=== PATIENT | male | born 1970 | race Hispanic/Latino ===

== ENCOUNTER 2017-03-30 17:29 | Emergency (ER) | payer OTHER ==
[~2017-03-30] VITALS: Ht 175.3 cm; Wt 122.5 kg
[~2017-03-30 17:29] MED LIST: CITALOPRAM HBR20 MG PO; DIVALPROEX SOD500 M1 PO; FUROSEMIDE40 MG PO; HYDRALAZINE HCL25 MG PO; LEVOTHYROXINE50 MCG PO; LOVASTATIN40 MG PEG; METOPROLOL TART25 MG PO; PHENYTOIN SODI100 MG PEG; POTASSIUM CHLO20 ME1 PO
--- OUTSIDE RECORDS SUMMARY | 2017-03-30 17:31 | XMS REPORT ---
[facility] Address Unknown Phone Unavailable Care Team Providers Care Corrosion Control Specialist Name Role Phone YASMEEN PUENTE Unavailable Unavailable Problems This patient has no known problems. Allergies, Adverse Reactions, Alerts This patient has no known allergies or adverse reactions. Medications This patient has no known medications. Results Test Description Test Time Test Comments Text Results Atomic Results Result Comments CHEST SINGLE (PORTABLE) [place] [address] Patient Name: BARB SAMANIEGO MR #: [id number] : 1970 Age/Sex: 46/M Req #: [id number] Adm Physician: Ordered by: YASMEEN PUENTE MD Report #: [id number] Location: ER Room/Bed: Procedure: [id number] DX/CHEST SINGLE (PORTABLE) Exam Date: 11/15/16 Exam Time: 2200 REPORT STATUS: Signed EXAMINATION: CHEST SINGLE (PORTABLE) INDICATION: Lower extremity edema COMPARISON: None FINDINGS: TUBES and LINES: None. LUNGS: Lungs are not well inflated. There are bibasilar atelectasis. There is mild prominence of the central pulmonary vasculature, consistent with pulmonary venous congestion. PLEURA: No pleural effusion or pneumothorax. HEART AND MEDIASTINUM: Limited evaluation due to poor inspiratory effort. However, mild enlargement is suspected. BONES AND SOFT TISSUES: No acute osseous lesion. Soft tissues are unremarkable. UPPER ABDOMEN: No free air under the diaphragm. IMPRESSION: No acute thoracic abnormality. Limited evaluation of the chest due to poor inspiratory effort Signed by: Dr. Brian Ramirez M.D. on 11/15/2016 10:38 PM Dictated By: BRIAN VILLATORO MD 37 Transcribed By: RHETT on 11/15/162237 COPY TO: YASMEEN PUENTE MD
[2017-03-30] MEDS ORDERED: METOPROLOL TART25 MG PO (18:13)
[2017-03-30] MEDS ORDERED: LACTULOSE20 GM/30 M PO (18:13)
[2017-03-30] MEDS ORDERED: LEVOTHYROXINE50 MCG PO (18:13)
[2017-03-30] MEDS ORDERED: LOVASTATIN10 MG (18:13)
[2017-03-30] MEDS ORDERED: DOXAZOSIN MESYLA2 MG PO (18:13)
[2017-03-30] MEDS ORDERED: DILANTIN30 MG (18:13)
[2017-03-30] MEDS ORDERED: CITALOPRAM HBR20 MG PO (18:13)
[2017-03-30] MEDS ORDERED: DIVALPROEX SOD125 MG (18:13)
[2017-03-30] MEDS ORDERED: HYDRALAZINE HCL10 MG PO (18:13)
[2017-03-30] MEDS ORDERED: LASIX20 MG PO (18:13)
[2017-03-30] MEDS ORDERED: POTASSIUM CHLO10 ME1 PO (18:13)
== END 2017-03-30 18:12 | disposition home or self-care (01) ==
LOC: FSED 17:29
DX: R41.82 Altered mental status, unspecified (principal); R41.0 Disorientation, unspecified; I63.9 Cerebral infarction, unspecified
CPT/HCPCS: 99282

== ENCOUNTER 2017-04-04 12:54 | Emergency (ER) | payer OTHER ==
[~2017-04-04] VITALS: Ht 175.3 cm; Wt 122.5 kg
[~2017-04-04 12:54] MED LIST changes: +DILANTIN30 MG; +DIVALPROEX SOD125 MG; +DOXAZOSIN MESYLA2 MG PO; +HYDRALAZINE HCL10 MG PO; +LACTULOSE20 GM/30 M PO; +LASIX20 MG PO; +LOVASTATIN10 MG; +POTASSIUM CHLO10 ME1 PO
--- OUTSIDE RECORDS SUMMARY | 2017-04-04 12:56 | XMS REPORT | Continuity of Care Document ---
Author Author [facility] Organization [facility] Address [address] [place] [address] Phone Unavailable Care Team Providers Care Document Review Specialist Name Role Phone JOSE WINTER MD PCP Insurance Providers Guarantor Boby Clark Address [address] [place] [address] Email [email or web address] [email or web address] [employer] Policy Number [id number] Subscriber's Name Boby Clark Relationship 18 Self / Same As Patient Effective Date 14 Advance Directives Directive Response Recorded Date/Time Does the patient have an advance directive? No 06/12/11 9:36pm If yes, is advance directive on file with [facility]? No 06/12/11 9:36pm If not on file with [facility] will patient provide a copy? No 06/12/11 9:36pm Do you have a Directive to Physician? No 03/30/17 5:53pm Do you have a Medical Power of Personnel Recruiter? No 03/30/17 5:53pm Do you have an out of hospital Do Not Resuscitate Order? No 03/30/17 5:53pm Do you have any special needs we should be aware of? No 03/30/17 5:53pm Do you have a support person here with you today? Yes 03/30/17 5:53pm Did patient receive Notice of Privacy Practices? Yes 03/30/17 5:53pm Did patient receive patient rights and responsibilities? Yes 03/30/17 5:53pm Problems No problem information available. Medications Current Home Medications Medication Dose Units Route Directions Days Qty Instructions Start Date Citalopram Hydrobromide (Citalopram Hbr) 20 Mg Tablet 20 Mg Oral Twice A Day Citalopram Hydrobromide (Citalopram Hbr) 20 Mg Tablet 20 Mg Oral Daily Divalproex Sodium 125 Mg Cap.sprink Divalproex Sodium (Divalproex Sodium Er) 500 Mg Tab.er.24h 2 Tab Oral Twice A Day Doxazosin Mesylate 2 Mg Tablet 2 Mg Oral Daily 30 Tab Furosemide (Lasix) 20 Mg Tablet 20 Mg Oral Daily 30 Tab Furosemide 40 Mg Tablet 80 Mg Oral Daily 30 Tab Hydralazine Hcl 10 Mg Tablet 10 Mg Oral Daily 30 Tab Hydralazine Hcl 25 Mg Tab 25 Mg Oral Three Times A Day Lactulose 20 Gm/30 Ml Solution 30 Ml Oral Levothyroxine Sodium 50 Mcg Tablet 25 Mcg Oral Daily 30 Tab Levothyroxine Sodium 50 Mcg Tablet 50 Mcg Oral Daily 30 Tab Lovastatin 10 Mg Tablet Lovastatin 40 Mg Tablet 1 Tab Peg Tube Daily THERAPEUTICALLY SUBSTITUTED WITH SIMVASTATIN 20MG Metoprolol Tartrate 25 Mg Tablet 25 Mg Oral Twice A Day Metoprolol Tartrate 25 Mg Tablet 25 Mg Oral Phenytoin Sodium Extended (Dilantin) 30 Mg Capsule Phenytoin Sodium Extended 100 Mg Capsule 3 Tab Peg Tube Three Times A Day Potassium Chloride 10 Meq Tab.er.prt 10 Meq Oral Potassium Chloride 20 Meq Tab.er.prt 1 Tab Oral Daily Social History Smoking Status Start Date Stop Date Never Smoker Hospital Discharge Instructions No hospital discharge instruction information available. Plan of Care Discharge Date 03/30/17 6:12pm Disposition HOME, SELF-CARE Condition at Discharge Stable Forms Provided Work/School Excuse Prescriptions See Medication Section Referrals JOSE WINTER MD Address: [address] [place] [address] Additional Instructions/Education Discussed decrease in appetite and treatment options. Recommend trial of medical therapy with FOLLOW UP MD next week. ED warnings given. Functional Status No functional status information available. Allergies, Adverse Reactions, Alerts No known allergies. Immunizations No immunization information available. Vital Signs Acute Vital Signs Vital Response Date/Time Height 5 ft 9 in 03/30/2017 5:30pm Weight 270 lb 03/30/2017 5:30pm Body Mass Index 39.9 kg/m^2 03/30/2017 5:30pm Results Laboratory Results Test Name Result Units Flags Reference Collection Date/Time Result Date/ Time Comments White Blood Count 5.99 x10e3/uL 4.8-10.8 11/15/2016 5:38pm 11/15/2016 6 :33pm Red Blood Count 5.11 x10e6/uL 4.3-5.7 11/15/2016 5:38pm 11/15/2016 6: 33pm Hemoglobin 15.9 g/dL 14.0-18.0 11/15/2016 5:38pm 11/15/2016 6:33pm Hematocrit 46.5 % 38.2-49.6 11/15/2016 5:38pm 11/15/2016 6:33pm Mean Corpuscular Volume 91.0 fL 81-99 11/15/2016 5:38pm 11/15/2016 6: 33pm Mean Corpuscular Hemoglobin 31.1 pg 28-32 11/15/2016 5:38pm 11/15/2016 6:33pm Mean Corpuscular Hemoglobin Concent 34.2 g/dL 31-35 11/15/2016 5:38pm 11/15/2016 6:33pm Red Cell Distribution Width 13.2 % 11.7-14.4 11/15/2016 5:38pm 2016 6:33pm Platelet Count 119 x10e3/uL L 140-360 11/15/2016 5:38pm 11/15/2016 6: 33pm Neutrophils (%) (Auto) 63.4 % 38.7-80.0 11/15/2016 5:38pm 11/15/2016 6: 33pm Lymphocytes (%) (Auto) 23.9 % 18.0-39.1 11/15/2016 5:38pm 11/15/2016 6: 33pm Monocytes (%) (Auto) 10.2 % 4.4-11.3 11/15/2016 5:38pm 11/15/2016 6: 33pm Eosinophils (%) (Auto) 1.5 % 0.0-6.0 11/15/2016 5:38pm 11/15/2016 6: 33pm Basophils (%) (Auto) 0.7 % 0.0-1.0 11/15/2016 5:38pm 11/15/2016 6:33pm IM GRANULOCYTES % 0.3 % 0.0-1.0 11/15/2016 5:38pm 11/15/2016 6:33pm Neutrophils # (Auto) 3.8 2.1-6.9 11/15/2016 5:38pm 11/15/2016 6:33pm Lymphocytes # (Auto) 1.4 1.0-3.2 11/15/2016 5:38pm 11/15/2016 6:33pm Monocytes # (Auto) 0.6 0.2-0.8 11/15/2016 5:38pm 11/15/2016 6:33pm Eosinophils # (Auto) 0.1 0.0-0.4 11/15/2016 5:38pm 11/15/2016 6:33pm Basophils # (Auto) 0.0 0.0-0.1 11/15/2016 5:38pm 11/15/2016 6:33pm Absolute Immature Granulocyte (auto 0.02 x10e3/uL 0-0.1 11/15/2016 5: 38pm 11/15/2016 6:33pm Urine Color YELLOW YELLOW 11/15/2016 4:51pm 11/15/2016 5:29pm Urine Clarity CLEAR CLEAR 11/15/2016 4:51pm 11/15/2016 5:29pm Urine Specific Edison 1.020 1.010-1.025 11/15/2016 4:51pm 2016 5:29pm Urine pH 6 5 - 7 11/15/2016 4:51pm 11/15/2016 5:29pm Urine Leukocyte Esterase NEGATIVE NEGATIVE 11/15/2016 4:51pm 2016 5:29pm Urine Nitrite NEGATIVE NEGATIVE 11/15/2016 4:51pm 11/15/2016 5:29pm Urine Protein NEGATIVE NEGATIVE 11/15/2016 4:51pm 11/15/2016 5:29pm Urine Glucose (UA) NEGATIVE NEGATIVE 11/15/2016 4:51pm 11/15/2016 5: 29pm Urine Ketones NEGATIVE NEGATIVE 11/15/2016 4:51pm 11/15/2016 5:29pm Urine Urobilinogen 0.2 mg/dL 0.2 - 1 11/15/2016 4:51pm 11/15/2016 5: 29pm Urine Bilirubin NEGATIVE NEGATIVE 11/15/2016 4:51pm 11/15/2016 5: 29pm Urine Blood NEGATIVE NEGATIVE 11/15/2016 4:51pm 11/15/2016 5:29pm Urine WBC 0-5 /HPF 0-5 11/15/2016 4:51pm 11/15/2016 5:46pm Urine RBC 0-5 /HPF 0-5 11/15/2016 4:51pm 11/15/2016 5:46pm Urine Bacteria RARE /HPF NONE 11/15/2016 4:51pm 11/15/2016 5:46pm Urine Epithelial Cells RARE /LPF NONE 11/15/2016 4:51pm 11/15/2016 5: 46pm Sodium Level 142 mmol/L 136-145 11/15/2016 5:38pm 11/15/2016 6:52pm Potassium Level 3.8 mmol/L 3.5-5.1 11/15/2016 5:38pm 11/15/2016 6:52pm Chloride Level 101 mmol/L 98-107 11/15/2016 5:38pm 11/15/2016 6:52pm Carbon Dioxide Level 30 mmol/L H -11/15/2016 5:38pm 11/15/2016 6: 52pm Anion Gap 14.8 mmol/L 8-11/15/2016 5:38pm 11/15/2016 6:52pm Blood Urea Nitrogen 13 mg/dL 09-1211/15/2016 5:38pm 11/15/2016 6:52pm Creatinine 1.11 mg/dL 0.72-1.25 11/15/2016 5:38pm 11/15/2016 6:52pm BUN/Creatinine Ratio 12 611/15/2016 5:38pm 11/15/2016 6:52pm Estimat Glomerular Filtration Rate > 60 ML/MIN 6011/15/2016 5:38pm 6:52pm Ranges were taken from the National Kidney Disease Education Program and the National Kid[employer] Foundation literature. Reference ranges: 60 or greater: Normal 16-59 (for 3 consecutive months): Chronic kidney disease 15 or less: Kidney failure Glucose Level 82 mg/dL 74-118 11/15/2016 5:38pm 11/15/2016 6:52pm Calcium Level 8.7 mg/dL 8.4-10.2 11/15/2016 5:38pm 11/15/2016 6:52pm Total Bilirubin 0.4 mg/dL 0.2-1.2 11/15/2016 5:38pm 11/15/2016 6:52pm Aspartate Amino Transf (AST/SGOT) 42 IU/L H 5-34 11/15/2016 5:38pm 11/15 6:52pm Alanine Aminotransferase (ALT/SGPT) 36 IU/L 0-55 11/15/2016 5:38pm 6:52pm Total Protein 7.9 g/dL 6.5-8.1 11/15/2016 5:38pm 11/15/2016 6:52pm Albumin 3.5 g/dL 3.5-5.0 11/15/2016 5:38pm 11/15/2016 6:52pm Globulin 4.4 g/dL H 2.3-3.5 11/15/2016 5:38pm 11/15/2016 6:52pm Albumin/Globulin Ratio 0.8 0.8-2.0 11/15/2016 5:38pm 11/15/2016 6: 52pm Alkaline Phosphatase 78 IU/L 40-150 11/15/2016 5:38pm 11/15/2016 6: 52pm B-Type Natriuretic Peptide 15.2 pg/mL 0-100 11/15/2016 5:38pm 2016 9:50pm Creatine Kinase 107 IU/L 30-200 11/15/2016 5:38pm 11/15/2016 9:43pm Creatine Kinase MB 0.70 ng/mL 0.00-5.00 11/15/2016 5:38pm 11/15/2016 9: 50pm Troponin I 0.079 ng/mL 0-0.300 11/15/2016 5:38pm 11/15/2016 9:50pm Procedures No procedure information available. Encounters Encounter Location Arrival/Admit Date Discharge/Depart Date Attending Provider Registered Emergency Room [facility] 03/30/17 5:29pm ABEBE MENA MD Departed Emergency Room [facility] 11/15/16 4:24pm 12:05am YASMEEN PUENTE MD
[2017-04-04] MEDS ORDERED: SODIUM CHLORIDE 0.9% 1000ML 1,000 ML IV STA (13:02)
--- NOTE | 2017-04-04 13:52 | Diagnostic Imaging Report ---
PROCEDURE: A single AP view of the chest. COMPARISON: Patients [facility], , CHEST SINGLE (PORTABLE), 11/15/2016, 22:04. INDICATIONS: STROKE LIKE SYMPTOMS, WEAKNESS FINDINGS: Lines/tubes: None. Lungs: Hypoinflated lungs. Bilateral midlung linear opacities, likely reflect subsegmental atelectasis. No consolidation or pulmonary edema. Pleura: There is no pleural effusion or pneumothorax. Heart and mediastinum: Cardiac silhouette is unremarkable. Central vascular crowding due to low lung volumes. Bones: No acute bony abnormality. IMPRESSION: 1. hypoinflated lungs, without acute cardiopulmonary abnormalities. Brayan Butterfield M.D. Dictated by: Brayan Butterfield M.D. on 04/04/2017 at 13:52 Electronically approved by: Brayan Butterfield M.D. on 04/04/2017 at 13:52
--- NOTE | 2017-04-04 14:30 | Diagnostic Imaging Report ---
Examination: CT BRAIN WITHOUT CONTRAST History:Stroke like symptoms. Comparison studies:None Technique: Axial images were obtained from the skull base to the vertex. Coronal and sagittal images reconstructed from the axial data. Intravenous contrast: None Findings: Scalp: No abnormalities. Bones: Prior left hemispheric craniotomy. No fractures, blastic or lytic lesions. Brain sulci: Mild volume loss for age. Ventricles: No hydrocephalus. Extra-axial space: No abnormalities. Parenchyma: There is a cortical-based area of encephalomalacia involving the left middle and inferior frontal gyri as well as the left middle and inferior temporal gyri, subinsular cortex and operculum. A chronic lacunar infarct is demonstrated in the posterior limb of the left internal capsule and anterior left thalamus with Wallerian degeneration along the left cerebral peduncle. No masses, hemorrhage, or acute cortical based vascular insults. Sellar/suprasellar region: No abnormalities. Craniocervical junction: Patent foramen magnum. No Chiari one malformation. Incidental findings: Mild inflammatory mucosal thickening of the bilateral maxillary sinuses. Impression: 1. No acute intracranial abnormalities. 2. 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 3. Chronic lacunar infarct in the posterior limb of the left internal capsule and anterior left thalamus. Signed by: Dr. Gita Morales M.D. on 04/04/2017 2:26 PM
[2017-04-04 14:56] LABS: BASOPHILS % 0.3 % (0.0-1.0); EOSINOPHILS # (AUTO) 0.1 (0.0-0.4); HEMATOCRIT 50.3 % (38.2-49.6); HEMOGLOBIN 17.4 g/dL (14.0-18.0); LYMPHOCYTES # (AUTO) 1.9 (1.0-3.2); LYMPHOCYTES % 29.8 % (18.0-39.1); MEAN CORPUSCULAR HEMOGLOBIN 30.5 pg (28-32); MEAN CORPUSCULAR HGB CONC 34.6 g/dL (31-35); MEAN CORPUSCULAR VOLUME 88.2 fL (81-99); MONOCYTES # (AUTO) 0.7 (0.2-0.8); MONOCYTES % 10.6 % (4.4-11.3); NEUTROPHILS # (AUTO) 3.7 (2.1-6.9); PLATELET COUNT 102 x10e3/uL (140-360); RED CELL DISTRIBUTION WIDTH 12.2 % (11.7-14.4)
[2017-04-04 15:00] LABS: INR 1.04; PROTHROMBIN TIME 12.8 seconds (11.9-14.5)
[2017-04-04 15:01] LABS: PARTIAL THROMBOPLASTIN TIME 25.8 seconds (23.8-35.5)
[2017-04-04 15:08] LABS: ALANINE AMINOTRANSFERASE 48 IU/L (0-55); ALBUMIN/GLOBULIN RATIO 0.8 (0.8-2.0); ALKALINE PHOSPHATASE 64 IU/L (40-150); ANION GAP 14.7 mmol/L (8-16); BLOOD UREA NITROGEN 10 mg/dL (7-26); BUN/CREATININE RATIO 10 (6-25); CALCIUM 8.8 mg/dL (8.4-10.2); CARBON DIOXIDE 28 mmol/L (22-29); CHLORIDE 98 mmol/L (98-107); CREATINE KINASE 68 IU/L (30-200); CREATININE, SERUM 1.01 mg/dL (0.72-1.25); EST GLOMERULAR FILTRATION RATE > 60 ML/MIN (60-); GLUCOSE 95 mg/dL (74-118); MAGNESIUM 1.9 MG/DL (1.3-2.1); POTASSIUM 3.7 mmol/L (3.5-5.1); SODIUM 137 mmol/L (136-145)
[2017-04-04 15:22] LABS: B-TYPE NATRIURETIC PEPTIDE2 20.2 pg/mL (0-100)
[2017-04-04] MEDS ORDERED: SODIUM CHLORIDE 0.9% 1000ML 1,000 ML ONE (16:31)
[2017-04-04] MEDS ORDERED: AMLODIPINE BESY10 MG PO (16:41)
[2017-04-04] MEDS ORDERED: DIVALPROEX SOD500 MG PO (16:41)
[2017-04-04 17:04] LABS: BILIRUBIN,URINE NEGATIVE (NEGATIVE); CLARITY,URINE CLOUDY (CLEAR); COLOR,URINE YELLOW (YELLOW); KETONES,URINE 1+ (NEGATIVE); LEUKOCYTE ESTERASE ,URINE NEGATIVE (NEGATIVE); NITRITE,URINE NEGATIVE (NEGATIVE); PROTEIN,URINE DIPSTICK NEGATIVE (NEGATIVE); URINE UROBILINOGEN 1 mg/dL (0.2 - 1)
[2017-04-04 17:51] VITALS: BP 143/99
== END 2017-04-04 18:26 | disposition home or self-care (01) ==
LOC: ER 12:54
DX: R53.1 Weakness (principal); I10 Essential (primary) hypertension; E03.9 Hypothyroidism, unspecified; Z86.73 Personal history of transient ischemic attack (TIA), and cerebral infarction without residual deficits
CPT/HCPCS: 36415; 51700; 70450; 71045; 80053; 81001; 82550; 82553; 82948; 83605; 83735; 83880; 84484; 85025; 85610; 85730; 87086; 93005; 99285; J7030

== ENCOUNTER 2020-05-20 12:11 | Emergency (ER) | payer OTHER ==
[~2020-05-20] VITALS: Ht 175.3 cm; Wt 122.5 kg
[~2020-05-20 12:11] MED LIST changes: +AMLODIPINE BESY10 MG PO; +DIVALPROEX SOD500 MG PO
[2020-05-20] MEDS ORDERED: HYDROCODONE/APAP 5MG-325MG TAB PO ONE (12:30)
[2020-05-20] MEDS ORDERED: AMOXICILLIN/CLAVULANATE K 500 MG TAB PO ONE (14:00)
[2020-05-20] MEDS ORDERED: AUGMENTIN 875-1 EACH PO (14:41)
[2020-05-20] MEDS ORDERED: TYLENOL # 31 EA PO (14:41)
== END 2020-05-20 14:53 | disposition home or self-care (01) ==
LOC: ER 12:20
DX: H70.91 Unspecified mastoiditis, right ear (principal); I10 Essential (primary) hypertension; E78.5 Hyperlipidemia, unspecified; E78.00 Pure hypercholesterolemia, unspecified; I69.351 Hemiplegia and hemiparesis following cerebral infarction affecting right dominant side
CPT/HCPCS: 70450; 99283